=== PATIENT | male | born 1980 | race Caucasian/White ===

== ENCOUNTER 2017-08-20 17:55 | Emergency (ER) | payer MEDICAID ==
[~2017-08-20] VITALS: Ht 182.9 cm; Wt 107.0 kg
[2017-08-20] MEDS ORDERED: IBUPROFEN 600MG TABLET PO ONE (18:15)
[2017-08-20 20:45] VITALS: BP 117/70
== END 2017-08-20 21:00 | disposition home or self-care (01) ==
LOC: ER 17:55
DX: H00.032 Abscess of right lower eyelid (principal); H00.022 Hordeolum internum right lower eyelid; F12.90 Cannabis use, unspecified, uncomplicated; Z86.59 Personal history of other mental and behavioral disorders; Z88.0 Allergy status to penicillin; Z91.09 Other allergy status, other than to drugs and biological substances
CPT/HCPCS: 99283

== ENCOUNTER 2018-05-25 14:47 | Emergency (ER) | payer SELFPAY ==
[~2018-05-25] VITALS: Ht 177.8 cm; Wt 100.0 kg
[2018-05-25] MEDS ORDERED: LORAZEPAM 2MG/ML CPJ IM ONE (20:45)
[2018-05-25] MEDS ORDERED: HALOPERIDOL LACTATE 5MG/ML VIAL IM ONE (20:45)
[2018-05-25] MEDS ORDERED: SODIUM CHLORIDE 0.9% 2,000 ML IV ONE (20:45)
[2018-05-25] MEDS ORDERED: DIPHENHYDRAMINE 50MG/ML VIAL IM STA (20:46)
[2018-05-25 22:09] LABS: BASOPHILS % 0.2 % (0.0-2.0); HEMATOCRIT. 49.4 % (42.0-52.0); HEMOGLOBIN. 16.9 g/dL (14.0-18.0); LYMPHOCYTES % 11.4 % (20.0-50.0); MEAN CORPUSCULAR HEMOGLOBIN 30.4 pg (28.0-32.0); MEAN CORPUSCULAR VOLUME 89.1 fL (80.0-94.0); MEAN PLATELET VOLUME 9.6 fl (7.4-10.4); MONOCYTES % 8.5 % (2.0-8.0); NEUTROPHILS % 79.9 % (40.0-76.0); PLATELET 298 x1000/uL (130-400); RED BLOOD CELL COUNT 5.54 mill/uL (4.7-6.1); RED CELL DISTRIBUTION WIDTH 13.1 % (11.6-14.6)
[2018-05-25 22:12] LABS: CHLORIDE 104 mEq/L (98-107)
[2018-05-25 22:19] LABS: ETHANOL BLOOD < 10 mg/dL
[2018-05-25 22:21] LABS: CREATINE KINASE 86 IU/L (39-308)
[2018-05-26] MEDS ORDERED: OXYCODONE HCL/ACETAMINOPHEN 5/325MG TABLET PO ONE (00:45)
[2018-05-26 01:36] LABS: CLARITY URINE CLEAR (CLEAR); COLOR URINE AMBER (YELLOW); KETONES URINE TRACE (NEGATIVE); LEUKOCYTE ESTERASE URINE NEGATIVE (NEGATIVE); NITRITE URINE NEGATIVE (NEGATIVE); OCCULT BLOOD URINE NEGATIVE (NEGATIVE); PROTEIN URINE 1+ (NEGATIVE); SPECIFIC GRAVITY URINE 1.029 (1.005-1.030); UROBILINOGEN URINE 0.2 E.U./dL (0.2-1.0)
[2018-05-26 01:38] LABS: *AMPHETAMINES SCREEN URINE NEGATIVE (NEGATIVE); *BARBITURATES SCREEN URINE NEGATIVE (NEGATIVE); *BENZODIAZEPINES SCREEN URINE PRESUMTIVE POSITIVE (NEGATIVE)
[2018-05-26 01:39] LABS: *COCAINE SCREEN URINE NEGATIVE (NEGATIVE); CANNABINOID URINE SCREEN PRESUMTIVE POSITIVE (NEGATIVE); METHADONE URINE SCREEN NEGATIVE (NEGATIVE); OPIATES URINE SCREEN NEGATIVE (NEGATIVE); PHENCYCLIDINE URINE SCREEN NEGATIVE (NEGATIVE)
[2018-05-26] MEDS: QUETIAPINE FUMARATE 100MG TABLET PO SCH ×2 (02:09→09:12)
[2018-05-26] MEDS ORDERED: QUETIAPINE FUMARATE 100MG TABLET PO SCH (09:00)
[2018-05-26 17:20] VITALS: BP 109/69
== END 2018-05-26 17:27 | disposition home or self-care (01) ==
LOC: ER 14:52
DX: F22 Delusional disorders (principal); F41.9 Anxiety disorder, unspecified; F31.9 Bipolar disorder, unspecified; F32.9 Major depressive disorder, single episode, unspecified; R41.82 Altered mental status, unspecified; Z88.0 Allergy status to penicillin; Z88.8 Allergy status to other drugs, medicaments and biological substances
CPT/HCPCS: 36415; 70450; 71045; 80053; 80305; 81003; 82550; 84443; 85025; 96372; 99284; G0482; J1200; J1630; J2060; J7030

== ENCOUNTER 2018-08-03 07:31 | Emergency (ER) | payer MEDICAID, OTHER ==
[~2018-08-03] VITALS: Ht 180.3 cm; Wt 82.0 kg
[2018-08-03] MEDS ORDERED: SODIUM CHLORIDE 0.9% 1,000 ML IV ONE (07:56)
[2018-08-03] MEDS ORDERED: NALOXONE HCL 0.4 MG/ML 1ML VIAL IV PRN (08:00)
[2018-08-03] MEDS ORDERED: NALOXONE HCL 1 MG/ML 2ML VIAL IV ONE (08:30)
[2018-08-03 08:33] LABS: BG CARBOXYHEMOGLOBIN 0.8 % (0.5-1.5); BG DEOXYHEMOGLOBIN 10.8 % (0.0-5.0); BG FRACTION INSPIRED OXYGEN 21; BG HCO3 ACT 25.8 mmol/L (22.0-26.0); BG METHEMOGLOBIN 0.3 % (0.0-1.5); BG OXYGEN SATURATION 89.1 % (92.0-98.5); BG OXYHEMOGLOBIN 88.1 % (94.0-97.0); BG PCO2 46.7 mmHg (35.0-45.0); BG PH 7.361 (7.350-7.450); BG PO2 55.3 mmHg (75.0-100.0); BG SAMPLE SITE RIGHT RADIAL; BG TOTAL HEMOGLOBIN 13.6 g/dL (12.0-18.0); BG VENT MODE ROOM AIR
[2018-08-03 08:41] LABS: HEMATOCRIT. 43.1 % (42.0-52.0); HEMOGLOBIN. 14.5 g/dL (14.0-18.0); MEAN CORPUSCULAR HEMOGLOBIN 29.9 pg (28.0-32.0); MEAN PLATELET VOLUME 8.9 fl (7.4-10.4); PLATELET 235 x1000/uL (130-400); RED BLOOD CELL COUNT 4.84 mill/uL (4.7-6.1)
[2018-08-03 08:45] LABS: CHLORIDE 105 mEq/L (98-107)
[2018-08-03 08:49] LABS: ETHANOL BLOOD < 10 mg/dL
[2018-08-03 09:38] LABS: PLATELET ESTIMATE NORMAL
[2018-08-03 09:58] LABS: CLARITY URINE CLEAR (CLEAR); COLOR URINE YELLOW (YELLOW); KETONES URINE NEGATIVE (NEGATIVE); LEUKOCYTE ESTERASE URINE NEGATIVE (NEGATIVE); NITRITE URINE NEGATIVE (NEGATIVE); OCCULT BLOOD URINE 3+ (NEGATIVE); PROTEIN URINE NEGATIVE (NEGATIVE); SPECIFIC GRAVITY URINE 1.008 (1.005-1.030); UROBILINOGEN URINE 0.2 E.U./dL (0.2-1.0)
[2018-08-03 10:24] LABS: METHADONE URINE SCREEN NEGATIVE (NEGATIVE); OPIATES URINE SCREEN NEGATIVE (NEGATIVE)
[2018-08-03 10:25] LABS: CANNABINOID URINE SCREEN NEGATIVE (NEGATIVE); PHENCYCLIDINE URINE SCREEN NEGATIVE (NEGATIVE)
[2018-08-03 10:26] LABS: *BARBITURATES SCREEN URINE NEGATIVE (NEGATIVE)
[2018-08-03 10:27] LABS: *COCAINE SCREEN URINE NEGATIVE (NEGATIVE)
[2018-08-03 10:29] LABS: *AMPHETAMINES SCREEN URINE PRESUMTIVE POSITIVE (NEGATIVE); *BENZODIAZEPINES SCREEN URINE PRESUMTIVE POSITIVE (NEGATIVE)
[2018-08-03 19:30] VITALS: BP 124/71
== END 2018-08-03 19:53 | disposition home or self-care (01) ==
LOC: ER 07:35
DX: F15.188 Other stimulant abuse with other stimulant-induced disorder (principal); R41.82 Altered mental status, unspecified; F10.21 Alcohol dependence, in remission
CPT/HCPCS: 36415; 36600; 70450; 71045; 73560; 80053; 80305; 80307; 80320; 80329; 81003; 82140; 82375; 82805; 82962; 83690; 85025; 96361; 96374; 96376; 99284; J2310; J7030; G0480

== ENCOUNTER 2018-08-03 19:50 | Emergency (ER) | payer MEDICAID, OTHER ==
[~2018-08-03] VITALS: Ht 185.4 cm; Wt 107.0 kg
[2018-08-03] MEDS ORDERED: IBUPROFEN 600MG TABLET PO ONE (23:30)
[2018-08-04 14:31] VITALS: BP 114/71
== END 2018-08-04 14:58 | disposition home or self-care (01) ==
LOC: ER 19:50
DX: S92.321A Displaced fracture of second metatarsal bone, right foot, initial encounter for closed fracture (principal); M70.61 Trochanteric bursitis, right hip; F15.10 Other stimulant abuse, uncomplicated; Y08.89XA Assault by other specified means, initial encounter; Y93.89 Activity, other specified; Y92.89 Other specified places as the place of occurrence of the external cause; Y99.8 Other external cause status; Z88.0 Allergy status to penicillin; Z98.890 Other specified postprocedural states
CPT/HCPCS: 70450; 72192; 73502; 73610; 73630; 99284; Z7610